=== PATIENT | female | born 1935 | race Two or more races ===

== ENCOUNTER 2018-03-25 14:56 | Emergency (ER) | payer OTHER ==
[~2018-03-25] VITALS: Ht 154.9 cm; Wt 65.8 kg
[~2018-03-25 14:56] MED LIST: ADVAIR 2501 DISK W/1; AMBIEN PAK10 MG PO; CARDIZEM CD180 MG PO; CATAFLAM50 MG PO; DIOVAN160 M1 PO; FEXOFENADINE H180 MG PO; FLEXERIL10 MG PO; INTESTINEX1 CAP PO; ISOSORBIDE MONO30 MG PO; LEVAQUIN500 MG PO; MEDROLPACK PO; PLAVIX75 MG PO; SERTRALINE HCL50 MG PO; XANAX0.25 MG PO; XARELTO10 MG; ZANTAC300 MG PO; ZOCOR20 MG PO
[2018-03-25] MEDS ORDERED: VALSARTAN160 MG PO (16:07)
[2018-03-25] MEDS ORDERED: SIMVASTATIN20 MG PO (16:08)
[2018-03-25] MEDS ORDERED: ISOSORBIDE MONO30 MG PO (16:08)
[2018-03-25] MEDS ORDERED: DILT-XR180 MG PO (16:08)
[2018-03-25] MEDS ORDERED: SERTRALINE HCL50 MG PO (16:08)
[2018-03-25] MEDS ORDERED: PANTOPRAZOLE SO40 MG PO (16:09)
[2018-03-25] MEDS ORDERED: RANITIDINE HCL300 MG PO (16:10)
[2018-03-25] MEDS ORDERED: ZOLPIDEM TARTRA10 MG PO (16:11)
[2018-03-25] MEDS ORDERED: ALPRAZOLAM0.25 MG PO (16:11)
== END 2018-03-25 18:07 | disposition home or self-care (01) ==
LOC: ER 14:56
DX: M62.838 Other muscle spasm (principal)

== ENCOUNTER 2018-04-18 12:40 | Emergency (ER) | payer OTHER ==
[~2018-04-18] VITALS: Ht 152.4 cm; Wt 69.4 kg
[~2018-04-18 12:40] MED LIST changes: +ALPRAZOLAM0.25 MG PO; +DILT-XR180 MG PO; +PANTOPRAZOLE SO40 MG PO; +RANITIDINE HCL300 MG PO; +SIMVASTATIN20 MG PO; +VALSARTAN160 MG PO; +ZOLPIDEM TARTRA10 MG PO
== END 2018-04-18 15:34 | disposition home or self-care (01) ==
LOC: ER 12:40
DX: R51 Headache (principal)

== ENCOUNTER 2018-08-12 13:07 | Emergency (ER) | payer OTHER ==
[~2018-08-12] VITALS: Ht 149.9 cm; Wt 67.1 kg
== END 2018-08-12 17:45 | disposition home or self-care (01) ==
LOC: ER 13:07
DX: J40 Bronchitis, not specified as acute or chronic (principal); R05 Cough

== ENCOUNTER 2018-08-31 12:22 | Emergency (ER) | payer OTHER ==
[~2018-08-31] VITALS: Ht 152.4 cm; Wt 63.5 kg
== END 2018-08-31 18:25 | disposition home or self-care (01) ==
LOC: ER 12:22
DX: S22.31XA Fracture of one rib, right side, initial encounter for closed fracture (principal); S82.092A Other fracture of left patella, initial encounter for closed fracture; S49.81XA Other specified injuries of right shoulder and upper arm, initial encounter; W01.198A Fall on same level from slipping, tripping and stumbling with subsequent striking against other object, initial encounter; Y93.89 Activity, other specified; Y92.018 Other place in single-family (private) house as the place of occurrence of the external cause; Y99.8 Other external cause status

== ENCOUNTER 2018-09-10 13:13 | Emergency (ER) | payer OTHER ==
[~2018-09-10] VITALS: Ht 149.9 cm; Wt 54.4 kg
== END 2018-09-10 17:29 | disposition home or self-care (01) ==
LOC: ER 13:13
DX: G89.11 Acute pain due to trauma (principal); M25.562 Pain in left knee; S82.092S Other fracture of left patella, sequela; W18.39XS Other fall on same level, sequela

== ENCOUNTER 2019-03-17 11:36 | Inpatient (IN) | payer OTHER ==
[~2019-03-17] VITALS: Ht 149.9 cm; Wt 63.5 kg
[2019-03-22] MEDS ORDERED: MEDROLPACK PO (09:27)
== END 2019-03-22 12:38 | disposition home or self-care (01) | DRG 202 ==
LOC: ER 11:36 → SEC-K 20:03 → MEDI 20:03
PROVIDERS: ADMIT Internal Medicine
PROC: BW24ZZZ Computerized Tomography (CT Scan) of Chest and Abdomen (ICD-10-PCS; principal; 2019-03-17)
PROC: 4A033R1 Measurement of Arterial Saturation, Peripheral, Percutaneous Approach (ICD-10-PCS; 2019-03-17)
PROC: 3E0F7GC Introduction of Other Therapeutic Substance into Respiratory Tract, Via Natural or Artificial Opening (ICD-10-PCS; 2019-03-17)
DX: J45.41 Moderate persistent asthma with (acute) exacerbation (principal); J44.1 Chronic obstructive pulmonary disease with (acute) exacerbation; J44.0 Chronic obstructive pulmonary disease with (acute) lower respiratory infection; R91.1 Solitary pulmonary nodule; R09.02 Hypoxemia; Z88.0 Allergy status to penicillin; I10 Essential (primary) hypertension; R31.29 Other microscopic hematuria; J20.9 Acute bronchitis, unspecified; I80.9 Phlebitis and thrombophlebitis of unspecified site

== ENCOUNTER 2019-05-02 22:47 | Emergency (ER) | payer OTHER ==
[~2019-05-02] VITALS: Ht 162.6 cm; Wt 58.1 kg
== END 2019-05-03 02:22 | disposition home or self-care (01) ==
LOC: ER 22:47
DX: I16.0 Hypertensive urgency (principal); I10 Essential (primary) hypertension; F41.8 Other specified anxiety disorders

== ENCOUNTER 2021-09-06 10:46 | Inpatient (IN) | payer OTHER ==
[~2021-09-06] VITALS: Ht 149.9 cm
[2021-09-06] MEDS ORDERED: DILTIAZEM ER120 M2 PO (12:33)
[2021-09-06] MEDS ORDERED: PEPCID AC20 MG PO (12:33)
[2021-09-06] MEDS ORDERED: MONTELUKAST SODI4 M1 PO (12:33)
[2021-09-06] MEDS ORDERED: ALLERGY RELIEF10 M3 PO (12:33)
[2021-09-06] MEDS ORDERED: SIMETHICONE80 MG PO (12:34)
[2021-09-06] MEDS ORDERED: NITROSTAT0.4 MG SL (12:34)
[2021-09-07] MEDS ORDERED: MONTELUKAST SOD10 MG (10:58)
[2021-09-07] MEDS ORDERED: IRBESARTAN150 MG (10:58)
[2021-09-07] MEDS ORDERED: ROSUVASTATIN CAL5 MG (10:58)
[2021-09-07] MEDS ORDERED: LOSARTAN POTASS50 MG (10:59)
[2021-09-07] MEDS ORDERED: HYDROCHLOROTH12.5 MG (10:59)
[2021-09-07] MEDS ORDERED: METFORMIN HCL500 M4 (10:59)
[2021-09-07] MEDS ORDERED: PENTOXIFYLLINE400 MG (10:59)
[2021-09-07] MEDS ORDERED: LEVOTHYROXINE50 MCG (10:59)
[2021-09-07] MEDS ORDERED: SERTRALINE HCL50 MG (10:59)
[2021-09-07] MEDS ORDERED: SIMVASTATIN20 MG (10:59)
[2021-09-07] MEDS ORDERED: DICYCLOMINE HCL10 MG (10:59)
== END 2021-09-16 07:34 | disposition expired | DRG 207 ==
LOC: ER 10:46 → MEDJ 15:36 → SURH 18:41 → ICU 09-07 04:00 → ICU-2 09-07 06:35 → ICU 09-08 15:55
PROVIDERS: ADMIT Internal Medicine; ATTEND Internal Medicine
PROC: 5A09457 Assistance with Respiratory Ventilation, 24-96 Consecutive Hours, Continuous Positive Airway Pressure (ICD-10-PCS; principal; 2021-09-06)
PROC: 3E0F7GC Introduction of Other Therapeutic Substance into Respiratory Tract, Via Natural or Artificial Opening (ICD-10-PCS; 2021-09-06)
PROC: 3E0F7SF Introduction of Other Gas into Respiratory Tract, Via Natural or Artificial Opening (ICD-10-PCS; 2021-09-06)
PROC: 4A033R1 Measurement of Arterial Saturation, Peripheral, Percutaneous Approach (ICD-10-PCS; 2021-09-06)
PROC: B24BZZZ Ultrasonography of Heart with Aorta (ICD-10-PCS; 2021-09-07)
PROC: BW25ZZZ Computerized Tomography (CT Scan) of Chest, Abdomen and Pelvis (ICD-10-PCS; 2021-09-07)
PROC: 5A1955Z Respiratory Ventilation, Greater than 96 Consecutive Hours (ICD-10-PCS; 2021-09-09)
PROC: 0BH17EZ Insertion of Endotracheal Airway into Trachea, Via Natural or Artificial Opening (ICD-10-PCS; 2021-09-09)
PROC: 05HY33Z Insertion of Infusion Device into Upper Vein, Percutaneous Approach (ICD-10-PCS; 2021-09-09)
DX: J18.8 Other pneumonia, unspecified organism (principal); J96.02 Acute respiratory failure with hypercapnia; R65.20 Severe sepsis without septic shock; J44.1 Chronic obstructive pulmonary disease with (acute) exacerbation; E87.2 Acidosis; I12.9 Hypertensive chronic kidney disease with stage 1 through stage 4 chronic kidney disease, or unspecified chronic kidney disease; N18.9 Chronic kidney disease, unspecified; J45.998 Other asthma; E78.49 Other hyperlipidemia; D72.828 Other elevated white blood cell count; D69.6 Thrombocytopenia, unspecified; F41.8 Other specified anxiety disorders; D64.9 Anemia, unspecified; E87.6 Hypokalemia; Z20.822 Contact with and (suspected) exposure to COVID-19